=== PATIENT | female | born 1955 | race Caucasian/White ===

== ENCOUNTER 2022-11-09 12:15 | Outpatient (CLI) | payer MEDICARE, OTHER | END 2022-11-09 12:16 | disposition home or self-care (01) | LOC: CSHMAMMO 12:15 | PROVIDERS: ATTEND Internal Medicine | DX: Z12.31 Encounter for screening mammogram for malignant neoplasm of breast (principal) | CPT/HCPCS: 77063; 77067 ==

== ENCOUNTER 2024-11-07 12:18 | Outpatient (CLI) | payer MEDICARE | END 2024-11-07 12:19 | disposition home or self-care (01) | LOC: CSHMAMMO 12:18 | PROVIDERS: ATTEND Internal Medicine | DX: Z12.31 Encounter for screening mammogram for malignant neoplasm of breast (principal) | CPT/HCPCS: 77063; 77067 ==